=== PATIENT | female | born 1950 | race Caucasian/White ===

== ENCOUNTER 2018-05-11 02:19 | Emergency (ER) | payer MEDICARE, OTHER ==
[~2018-05-11] VITALS: Ht 167.6 cm; Wt 76.2 kg
[~2018-05-11 02:19] MED LIST: LEVSOD125; LEVSOD150
[2018-05-11 02:47] LABS: Source, Urine Clean Catch
[2018-05-11 02:49] LABS: Bilirubin, Urine Neg (Neg); Blood, Urine 5+ (Neg); Glucose Qualitative, Urine Neg (Neg); Ketones, Urine Neg (Neg); Leukocyte Esterase, Urine 3+ (Neg); Nitrite, Urine Neg (Neg); Protein, Urine Neg (Neg); Specific Gravity, Urine 1.015 (1.003-1.022); Urobilinogen, Urine NORM (Normal); pH, Urine 6.5 (5.0-8.0)
[2018-05-11 02:57] LABS: Appearance, Urine Hazy (Clear); Bacteria Few /hpf; Color, Urine Pale Yellow (P-Yellow); Red Blood Cells, Urine 0-2 /hpf (0-2); Squamous Epithelial Cells Not Seen /hpf (Few); White Blood Cells, Urine TNTC /hpf (0-5)
[2018-05-11] MEDS ORDERED: NITR100CA PO (02:58)
[2018-05-11] MEDS ORDERED: Pyridium100 MG PO (02:58)
== END 2018-05-11 03:20 | disposition home or self-care (01) ==
LOC: ER 02:19
PROVIDERS: Emergency Medicine
DX: N30.90 Cystitis, unspecified without hematuria (principal); Z88.2 Allergy status to sulfonamides; Z88.1 Allergy status to other antibiotic agents; Z79.899 Other long term (current) drug therapy; E03.9 Hypothyroidism, unspecified; Z87.891 Personal history of nicotine dependence
CPT/HCPCS: 81001; 87077; 87086; 87186; 99283

== ENCOUNTER 2019-02-07 16:58 | Inpatient (IN) | payer MEDICARE, OTHER ==
[~2019-02-07] VITALS: Ht 167.6 cm; Wt 73.0 kg
[~2019-02-07 16:58] MED LIST changes: -ABAT250V; -ASCO500 PO; -Augmentin 875-1 EACH PO; -CRANBERRY450 MG PO; -LEVSOD100 PO; -Norco 5-325 Ta1 EACH PO; -THERA1 EACH PO; -[UNRECOGNIZED DRUG - OTHER]
[2019-02-07] MEDS ORDERED: LEVSOD100 PO ×2 (18:25)
[2019-02-07] MEDS ORDERED: [UNRECOGNIZED DRUG - OTHER] (18:25)
[2019-02-07] MEDS ORDERED: ASCO500 PO ×2 (18:26)
[2019-02-07] MEDS ORDERED: THERA1 EACH PO ×2 (18:26)
[2019-02-07] MEDS ORDERED: CRANBERRY450 MG PO ×2 (18:27)
--- NOTE | 2019-02-08 04:59 | NUR ---
SHIFT SUMMARY PT NEW ADMIT THIS SHIFT. AAOX4. NPO. PT REPORTING MINIMAL DISCOMFORT T/O SHIFT. NO NAUSEA/EMESIS. ORIENTED TO ROOM + CALL LIGHT USE. PT EDUCATED REGARDING TX + QUESTIONS ANSWERED. PT RESTING INTERMITTENTLY T/O MORNING. CALL LIGHT IN REACH + PT DEMONSTRATED USE.
--- NOTE | 2019-02-08 10:08 | NUR ---
Pt picked up from surgical floor. She is wearing a ring on each hand which cannot be removed. She signed the consent form, rings taped prior to surgery. History, Chart, Medications and Allergies reviewed before start of procedure. Pre-Op teaching done. Pt verbalizes understanding. Patient reports completing Chlorhexadine shower X2, one last night and one this morning. Patient confirms NPO status and agrees with scheduled surgery. Jen states her is on his way, should be in the waiting area when he gets here.
--- NOTE | 2019-02-08 13:22 | NUR ---
PT RETURNED TO UNIT FROM PACU AT APROX 1215. 3 STERI STRIPS C/D/I, NO DRAINAGE. PT DENIES PAIN.
--- NOTE | 2019-02-08 17:32 | NUR ---
SHIFT SUMMARY PT POD 0 LAP APPY. STERI STRIPS X'3 C/D/I. PT HAS DENIED PAIN SINCE RETURN TO FLOOR. TOLERATING REGULAR DIET, NO N/V. VOIDING. SALINE LOCKED. INDEPENDENT IN ROOM
--- NOTE | 2019-02-09 07:52 | NUR ---
SHIFT SUMMARY PT POD#1 LAP APPI. AAOX4. DISCOMFORT CONTROLLED WITH 1 NORCO X1 THIS SHIFT. NO NAUSEA/EMESIS. ABD INCISIONS WITH STERI STRIPS C/D/I. PT INDEPENDENT IN ROOM + OUT IN HALLS TO AMBULATE FREQUENTLY. GOOD PO INTAKE + OUTPUT. PT RESTING THIS AM. CALL LIGHT IN REACH + PT USES FOR ASSISTANCE.
[2019-02-09] MEDS ORDERED: Augmentin 875-1 EACH PO ×4 (14:32→14:36)
[2019-02-09] MEDS ORDERED: Norco 5-325 Ta1 EACH PO ×4 (14:32→14:35)
[2019-02-09] MEDS ORDERED: ABAT250V ×2 (14:33)
--- NOTE | 2019-02-09 14:47 | NUR ---
PROVIDED DISCHARGE INSTRUCTIONS TO PT AND , ANSWERED ALL QUESTIONS. I ESCORTED PT OUTSIDE TO THE CAR. PT WALKED AND TOLERATED WELL. PT'S IV WAS REMOVED THIS MORNING.
== END 2019-02-09 14:45 | disposition home or self-care (01) | DRG 340 ==
LOC: ER 16:58 → SURS 18:19 → ERHOLD 18:19 → SURS 20:21
PROVIDERS: ADMIT Surgery
PROC: 0DTJ4ZZ Resection of Appendix, Percutaneous Endoscopic Approach (ICD-10-PCS; principal; 2019-02-09)
DX: K35.33 Acute appendicitis with perforation, localized peritonitis, and gangrene, with abscess (principal); E03.9 Hypothyroidism, unspecified; Z87.891 Personal history of nicotine dependence; N85.4 Malposition of uterus
CPT/HCPCS: 36415; 72192; 96365; 99284-25; A9270-GY; J1100; J1885; J2250; J2405; J2543; J2704; J2710; J3010; J7030; J7120

== ENCOUNTER → 2019-02-07 | Outpatient (CLI) | payer MEDICARE, OTHER ==
[~2019-02-07] MED LIST changes: +ABAT250V; +ASCO500 PO; +Augmentin 875-1 EACH PO; +CRANBERRY450 MG PO; +LEVSOD100 PO; +NITR100CA PO; +Norco 5-325 Ta1 EACH PO; +Pyridium100 MG PO; +THERA1 EACH PO; +[UNRECOGNIZED DRUG - OTHER]
[2019-02-07 15:12] LABS: BASOPHILS ABSOLUTE AUTO 0.03 K/mm3 (0.00-0.23); BASOPHILS PERCENT AUTO 0 % (0-2); EOSINOPHILS ABSOLUTE AUTO 0.04 K/mm3 (0.00-0.68); EOSINOPHILS PERCENT AUTO 0 % (0-6); Hematocrit 42.3 % (33.0-51.0); Hemoglobin 14.1 g/dL (11.5-16.0); IMMATURE GRAN ABSOLUTE AUTO 0.04 K/mm3 (0.00-0.10); IMMATURE GRAN PERCENT AUTO 0 % (0-1); LYMPHOCYTES ABSOLUTE AUTO 1.34 K/mm3 (0.84-5.20); LYMPHOCYTES PERCENT AUTO 12 % (21-46); MONOCYTES ABSOLUTE AUTO 1.14 K/mm3 (0.16-1.47); MONOCYTES PERCENT AUTO 10 % (4-13); Mean Corpuscular HGB 31.3 pg (26.0-34.0); Mean Corpuscular HGB Conc 33.3 g/dL (31.5-36.5); Mean Corpuscular Volume 94 fL (80-100); Mean Platelet Volume 10.9 fL (9.1-12.4); NEUTROPHILS ABSOLUTE AUTO 9.06 K/mm3 (1.96-9.15); NEUTROPHILS PERCENT AUTO 78 % (41-73); Platelet Count 280 K/mm3 (150-400); RDW Coefficient Variation 13.2 % (11.7-14.2); RDW Standard Deviation 45.5 fL (35.1-46.3); White Blood Cell Count 11.65 K/mm3 (4.00-11.30)
[2019-02-07 15:16] LABS: Anion Gap 11 mmol/L (6-16); Blood Urea Nitrogen 11 mg/dL (8-24); CO2, Blood 28 mmol/L (21-32); Calcium, Blood 9.1 mg/dL (8.5-10.1); Chloride, Blood 98 mmol/L (98-108); Creatinine, Blood 0.92 mg/dL (0.40-1.00); Glomerular Filtration Rate >60 (60-); Glucose, Blood 98 mg/dL (70-99); Potassium, Blood 3.7 mmol/L (3.5-5.5); Sodium, Blood 137 mmol/L (136-145)
== END | disposition home or self-care (01) ==
LOC: LAB SHORT 14:57 → LAB EV 14:57
PROVIDERS: Physician Assistant Surgical
DX: R10.31 Right lower quadrant pain (principal)
CPT/HCPCS: 80048; 85025

== ENCOUNTER → 2019-03-05 | Outpatient (CLI) | payer MEDICARE, OTHER ==
[~2019-03-05] MED LIST changes: +ABAT250V; +ASCO500 PO; +Augmentin 875-1 EACH PO; +CRANBERRY450 MG PO; +LEVSOD100 PO; +Norco 5-325 Ta1 EACH PO; +THERA1 EACH PO; +[UNRECOGNIZED DRUG - OTHER]
== END | disposition home or self-care (01) ==
LOC: LAB EV 12:12 → LAB SHORT 12:12
DX: N39.0 Urinary tract infection, site not specified (principal)
CPT/HCPCS: 87086

== ENCOUNTER 2019-05-28 22:06 | Emergency (ER) | payer MEDICARE, OTHER ==
[~2019-05-28] VITALS: Ht 167.6 cm; Wt 73.5 kg
[2019-05-28 22:27] LABS: Source, Urine Clean Catch
[2019-05-28 22:29] LABS: Bilirubin, Urine Neg (Neg); Blood, Urine 4+ (Neg); Glucose Qualitative, Urine Neg (Neg); Ketones, Urine Neg (Neg); Leukocyte Esterase, Urine 3+ (Neg); Nitrite, Urine Neg (Neg); Protein, Urine Neg (Neg); Specific Gravity, Urine 1.005 (1.003-1.022); Urobilinogen, Urine NORM (Normal); pH, Urine 6.5 (5.0-8.0)
[2019-05-28 22:34] LABS: Appearance, Urine Hazy (Clear); Bacteria Few /hpf; Color, Urine Pale Yellow (P-Yellow); Red Blood Cells, Urine 0-2 /hpf (0-2); Squamous Epithelial Cells Rare /hpf (Few); White Blood Cells, Urine TNTC /hpf (0-5)
[2019-05-28] MEDS ORDERED: Macrobid 100 M100 MG PO (22:48)
== END 2019-05-28 22:55 | disposition home or self-care (01) ==
LOC: ER 22:06
PROVIDERS: Emergency Medicine
DX: N30.00 Acute cystitis without hematuria (principal); Z88.2 Allergy status to sulfonamides; Z88.1 Allergy status to other antibiotic agents; Z79.899 Other long term (current) drug therapy; E03.9 Hypothyroidism, unspecified; Z87.891 Personal history of nicotine dependence
CPT/HCPCS: 81001; 87077; 87086; 87186; 99283

== ENCOUNTER → 2019-06-15 | Outpatient (CLI) | payer MEDICARE, OTHER ==
[~2019-06-15] MED LIST changes: +Macrobid 100 M100 MG PO
== END | disposition home or self-care (01) ==
LOC: LAB SHORT 11:47 → LAB EV 11:47
DX: N39.0 Urinary tract infection, site not specified (principal)
CPT/HCPCS: 87077; 87086; 87186

== ENCOUNTER → 2022-01-11 | Outpatient (CLI) | payer MEDICARE, OTHER | END | disposition home or self-care (01) | LOC: LAB SHORT 17:51 → LAB 17:51 | DX: N39.0 Urinary tract infection, site not specified (principal) | CPT/HCPCS: 87086 ==

== ENCOUNTER → 2022-03-28 | Outpatient (CLI) | payer MEDICARE, OTHER | END | disposition home or self-care (01) | LOC: LAB SHORT 08:52 → LAB 08:52 | DX: R30.0 Dysuria (principal) | CPT/HCPCS: 87077; 87086; 87186 ==

== ENCOUNTER → 2023-05-18 | Outpatient (CLI) | payer MEDICARE, OTHER | END | disposition home or self-care (01) | LOC: LAB 09:30 → LAB SHORT 09:30 | DX: N39.0 Urinary tract infection, site not specified (principal) | CPT/HCPCS: 87077; 87086; 87186 ==

== ENCOUNTER → 2023-06-10 | Outpatient (CLI) | payer MEDICARE, OTHER | END | disposition home or self-care (01) | LOC: LAB 11:13 → LAB SHORT 11:13 | DX: N39.0 Urinary tract infection, site not specified (principal) | CPT/HCPCS: 87086 ==

== ENCOUNTER → 2023-07-17 | Outpatient (CLI) | payer MEDICARE, OTHER | LOC: LAB SHORT 10:50 → LAB 10:50 | DX: N39.0 Urinary tract infection, site not specified (principal) | CPT/HCPCS: 87077; 87086; 87186 ==

== ENCOUNTER → 2023-08-08 | Outpatient (CLI) | payer MEDICARE, OTHER | END | disposition home or self-care (01) | LOC: LAB SHORT 13:24 → LAB 13:24 | DX: N39.0 Urinary tract infection, site not specified (principal) | CPT/HCPCS: 87077; 87086; 87186 ==

== ENCOUNTER → 2024-03-22 | Outpatient (CLI) | payer MEDICARE, OTHER | LOC: LAB 10:15 → LAB SHORT 10:15 | DX: N39.0 Urinary tract infection, site not specified (principal); B96.20 Unspecified Escherichia coli [E. coli] as the cause of diseases classified elsewhere | CPT/HCPCS: 87077; 87086; 87186 ==